=== PATIENT | female | born 1955 | race Caucasian/White ===

== ENCOUNTER 2025-08-26 14:21 | Outpatient (CLI) | payer BC, SELFPAY ==
[2025-08-26 22:11] LABS: Vitamin D 25 Hydroxy* 39 ng/mL (30-80)
== END 2025-08-26 14:22 | disposition home or self-care (01) ==
LOC: NPINS 14:22
PROVIDERS: Visit Provider Physician Assistant
DX: L65.0 Telogen effluvium (principal)
CPT/HCPCS: 82306; 82728